=== PATIENT | female | born 1970 | race Caucasian/White ===

== ENCOUNTER → 2016-12-20 | Outpatient (CLI) | payer BC ==
[2016-12-20 21:07] LABS: Scleroderma SC-70 Ab Interp NEGATIVE (NEGATIVE)
[2016-12-23 10:22] LABS: RNP AB Interpretation NEGATIVE (NEGATIVE)
== END ==
LOC: LABWHC1 16:02
PROVIDERS: ATTEND Nurse Practitioner Family
DX: E04.9 Nontoxic goiter, unspecified (principal); R53.83 Other fatigue; R13.10 Dysphagia, unspecified
CPT/HCPCS: 36415; 82164; 82607; 84439; 84443; 86235

== ENCOUNTER → 2016-12-25 | Outpatient (CLI) | payer BC ==
--- NOTE | 2016-12-27 10:15 | MM ---
Reason for exam: screening (asymptomatic). Last mammogram was performed 1 year and 7 months ago. History: Family history of breast cancer in maternal aunt. Taking hormonal contraceptives for 16 years beginning at age 20. Physical Findings: A clinical breast exam by your physician is recommended on an annual basis and results should be correlated with mammographic findings. MG 3D Screening Mammo W/Cad Bilateral CC and MLO view(s) were taken. Prior study comparison: June 05, 2015, bilateral MG 3d screening mammo w/cad. November 27, 2012, bilateral digital screening mammo w/CAD. The breast tissue is heterogeneously dense. This may lower the sensitivity of mammography. No significant changes when compared with prior studies. ASSESSMENT: Negative, BI-RAD 1 RECOMMENDATION: Routine screening mammogram of both breasts in 1 year.
== END | disposition home or self-care (01) ==
LOC: RADMAMWWP 17:06
PROVIDERS: ATTEND Family Medicine
DX: Z12.31 Encounter for screening mammogram for malignant neoplasm of breast (principal)
CPT/HCPCS: 77063; G0202

== ENCOUNTER → 2017-12-03 | Outpatient (CLI) | payer BC ==
--- NOTE | 2017-12-03 13:59 | CT ---
EXAMINATION TYPE: CT sinus wo con DATE OF EXAM: 12/03/2017 COMPARISON: 07/26/1999 HISTORY: Facial pressure and pain with drainage CT DLP: 572 mGycm. Automated Exposure Control for Dose Reduction was Utilized. TECHNIQUE: CT scan of the sinuses is performed without contrast, axial images are obtained, coronal r eformatted images are also reviewed. FINDINGS: The paranasal sinuses including the frontal, ethmoid, sphenoid, and maxillary sinuses bila terally are well-aerated without abnormal opacification. The left ostiomeatal complex is patent bilaterally on the coronal images. The right ostiomeatal compl ex appears markedly narrowed. Visualized portion of mastoid air cells show no abnormal opacification. The globes are intact bilate rally. IMPRESSION: The sinuses are clear. There may be congenital narrowing of the right ostiomeatal complex .
== END | disposition home or self-care (01) ==
LOC: RADCTMAIN 13:31
PROVIDERS: ATTEND Otolaryngology
DX: J32.9 Chronic sinusitis, unspecified (principal)
CPT/HCPCS: 70486

== ENCOUNTER → 2017-12-04 | Outpatient (CLI) | payer BC | END | disposition home or self-care (01) | LOC: LABWHC1 17:00 | PROVIDERS: ATTEND Nurse Practitioner Family | DX: E55.9 Vitamin D deficiency, unspecified (principal) | CPT/HCPCS: 36415; 82306 ==

== ENCOUNTER → 2017-12-29 | Outpatient (CLI) | payer BC ==
[2017-12-29 11:25] LABS: T4, Free (Free Thyroxine) 0.9 ng/dL (0.78-2.19)
[2017-12-29 19:05] LABS: Vitamin D 25 Hydroxy 44.4 ng/mL (30.0-100.0)
== END | disposition home or self-care (01) ==
LOC: LABWHC1 10:13
PROVIDERS: ATTEND Obstetrics & Gynecology
DX: E55.9 Vitamin D deficiency, unspecified (principal); E04.9 Nontoxic goiter, unspecified; Z78.0 Asymptomatic menopausal state
CPT/HCPCS: 36415; 82306; 82607; 82670; 83001; 84403; 84439; 84443

== ENCOUNTER → 2018-02-09 | Outpatient (CLI) | payer BC ==
--- NOTE | 2018-02-09 09:38 | CT ---
EXAMINATION TYPE: CT soft tissue neck w con DATE OF EXAM: 02/09/2018 COMPARISON: None HISTORY: Tightness CT DLP: 269.2 mGycm CONTRAST: CT scan of the neck is performed with IV Contrast, patient injected with 100 mL of Isovue 300. Contrast enhanced CT of the neck was performed from the skull base through the lung apices. AIRWAY: The supraglottic, glottic, and subglottic portions of the airway appear patent and free of mass. SALIVARY GLANDS: The submandibular and parotid glands are free of mass or inflammatory process. THYROID GLAND: No nodules or masses seen. LYMPH NODES: No adenopathy seen greater than 1cm. LUNG APICES: No nodule or mass is seen. OTHER: Vascular structures are patent. No significant degenerative change of the cervical spine. N o abscess seen. IMPRESSION: 1. No significant abnormality to account for the patient's symptoms. Correlate clinically.
== END | disposition home or self-care (01) ==
LOC: RADCTMAIN 08:34
PROVIDERS: ATTEND Otolaryngology
DX: R49.0 Dysphonia (principal)
CPT/HCPCS: 70491; Q9967

== ENCOUNTER → 2018-10-14 | Outpatient (CLI) | payer BC ==
--- NOTE | 2018-10-15 12:11 | MM ---
Reason for exam: screening (asymptomatic). Last mammogram was performed 1 year and 10 months ago. History: Family history of breast cancer in maternal aunt. Taking hormonal contraceptives for 16 years beginning at age 20. Physical Findings: A clinical breast exam by your physician is recommended on an annual basis and results should be correlated with mammographic findings. MG 3D Screening Mammo W/Cad Bilateral CC and MLO view(s) were taken. Prior study comparison: December 25, 2016, bilateral MG 3d screening mammo w/cad. June 05, 2015, bilateral MG 3d screening mammo w/cad. The breast tissue is heterogeneously dense. This may lower the sensitivity of mammography. There is no discrete abnormality. No significant changes when compared with prior studies. ASSESSMENT: Negative, BI-RAD 1 RECOMMENDATION: Routine screening mammogram of both breasts in 1 year.
== END | disposition home or self-care (01) ==
LOC: RADMAMWWP 16:36
PROVIDERS: ATTEND Obstetrics & Gynecology
DX: Z12.31 Encounter for screening mammogram for malignant neoplasm of breast (principal)
CPT/HCPCS: 77063; 77067

== ENCOUNTER → 2020-04-25 | Outpatient (CLI) | payer BC ==
--- NOTE | 2020-04-26 11:38 | MM ---
Reason for exam: screening (asymptomatic). Last mammogram was performed 1 year and 6 months ago. History: Family history of breast cancer in maternal aunt. Taking hormonal contraceptives for 16 years beginning at age 20. Physical Findings: A clinical breast exam by your physician is recommended on an annual basis and results should be correlated with mammographic findings. MG 3D Screening Mammo W/Cad Bilateral CC, MLO, and XCCL view(s) were taken. Prior study comparison: October 14, 2018, bilateral MG 3d screening mammo w/cad. December 25, 2016, bilateral MG 3d screening mammo w/cad. The breast tissue is heterogeneously dense. This may lower the sensitivity of mammography. There is no discrete abnormality. ASSESSMENT: Negative, BI-RAD 1 RECOMMENDATION: Routine screening mammogram of both breasts in 1 year.
== END | disposition home or self-care (01) ==
LOC: RADMAMWWP 11:30
PROVIDERS: ATTEND Obstetrics & Gynecology
DX: Z12.31 Encounter for screening mammogram for malignant neoplasm of breast (principal)
CPT/HCPCS: 77063; 77067

== ENCOUNTER → 2021-05-10 | Outpatient (CLI) | payer BC | END | disposition home or self-care (01) | LOC: LABWHC1 16:15 | PROVIDERS: ATTEND Otolaryngology | DX: R53.83 Other fatigue (principal) | CPT/HCPCS: 36415; 82306 ==

== ENCOUNTER → 2021-08-16 | Outpatient (CLI) | payer BC ==
--- NOTE | 2021-08-17 12:52 | MM ---
Reason for exam: screening (asymptomatic). Last mammogram was performed 1 year and 4 months ago. History: Family history of breast cancer in maternal aunt. Taking hormonal contraceptives for 16 years beginning at age 20. Physical Findings: A clinical breast exam by your physician is recommended on an annual basis and results should be correlated with mammographic findings. MG 3D Screening Mammo W/Cad Bilateral CC and MLO view(s) were taken. Prior study comparison: April 25, 2020, bilateral MG 3d screening mammo w/cad. October 14, 2018, bilateral MG 3d screening mammo w/cad. The breast tissue is heterogeneously dense. This may lower the sensitivity of mammography. There is no discrete abnormality. No significant changes when compared with prior studies. ASSESSMENT: Negative, BI-RAD 1 RECOMMENDATION: Routine screening mammogram of both breasts in 1 year.
== END | disposition home or self-care (01) ==
LOC: RADMAMWWP 12:44
PROVIDERS: ATTEND Obstetrics & Gynecology
DX: Z12.31 Encounter for screening mammogram for malignant neoplasm of breast (principal); Z80.3 Family history of malignant neoplasm of breast
CPT/HCPCS: 77063; 77067

== ENCOUNTER → 2024-01-02 | Outpatient (CLI) | payer BC ==
[2024-01-02 19:20] LABS: Estradiol <20.0 pg/mL
[2024-01-02 19:38] LABS: Follicle Stimulating Hormone 80.1 mIU/mL
== END | disposition home or self-care (01) ==
LOC: LABWHC1 13:57
PROVIDERS: ATTEND Obstetrics & Gynecology
DX: G47.00 Insomnia, unspecified (principal); N95.9 Unspecified menopausal and perimenopausal disorder; R53.83 Other fatigue
CPT/HCPCS: 36415; 82670; 83001; 84144; 84403; 84439; 84443; 84481

== ENCOUNTER → 2024-09-06 | Outpatient (CLI) | payer BC ==
--- NOTE | 2024-09-06 08:00 | MM ---
Reason for Exam: Screening (asymptomatic). Last mammogram was performed 2 year(s) and 1 month(s) ago. Patient History: Menarche at age 12. First Full-Term at age 25. Patient has history of breast feeding. Currently using Estrogen, for 1 year. Hormonal Contraceptives, starting at age 20 for 16 years. Currently using Unspecified Hormone, for 1 year. Maternal aunt had breast cancer. Risk Values: Margarita 5 year model risk: 1.1%. NCI Lifetime model risk: 8.4%. Prior Study Comparison: 04/25/2020 Bilateral Screening Mammogram, [facility]. 08/16/2021 Bilateral Screening Mammogram, [facility]. 08/27/2022 Bilateral MG 3D screening mammo w/cad, [facility]. Tissue Density: The breasts are heterogeneously dense, which may obscure small masses. Findings: Analyzed By CAD. There is no suspicious group of microcalcifications or new suspicious mass in either breast. Overall Assessment: Benign, BI-RAD 2 Management: Screening Mammogram of both breasts in 1 year. . Patient should continue monthly self-breast exams. A clinical breast exam by your physician is recommended on an annual basis. This exam should not preclude additional follow-up of suspicious palpable abnormalities. Note on Margarita scores and lifetime risk: 1. A Margarita score greater than 3% is considered moderate risk. If this is the case, consider specialist referral to assess eligibility for a risk reducing agent. 2. If overall lifetime risk for the development of breast cancer is 20% or higher, the patient may qualify for future screening with alternating mammogram and breast MRI. [facility], , 09/06/2024 7:57 AM. Electronically signed and approved by: Zackary Brunner M.D. Radiolog[facility]
== END | disposition home or self-care (01) ==
LOC: RADMAMWWP 07:42
PROVIDERS: ATTEND Obstetrics & Gynecology
DX: Z12.31 Encounter for screening mammogram for malignant neoplasm of breast (principal); R92.333 Mammographic heterogeneous density, bilateral breasts; Z80.3 Family history of malignant neoplasm of breast; Z92.0 Personal history of contraception
CPT/HCPCS: 77063; 77067